=== PATIENT | male | born 1950 | race Caucasian/White ===

== ENCOUNTER 2024-03-12 06:57 | Day surgery (SDC) | payer MEDICARE ==
[2024-03-11 09:51] LABS: BASOPHILS % (AUTO) 0.6 % (0-1); EOSINOPHILS # (AUTO) 0.2 X10'3 (0-0.9); EOSINOPHILS % (AUTO) 3.5 % (0-6); HEMATOCRIT 43.4 % (42.0-52.0); HEMOGLOBIN 14.6 g/dl (14.0-17.9); LYMPHOCYTES # (AUTO) 0.9 X10'3 (1.1-4.8); LYMPHOCYTES % (AUTO) 17.7 % (21-51); MEAN CORPUSCULAR HEMOGLOBIN 31.7 PG (27.0-31.0); MEAN CORPUSCULAR HGB CONC 33.5 g/dL (33.0-36.5); MEAN CORPUSCULAR VOLUME 94.5 FL (78-98); MEAN PLATELET VOLUME 7.2 FL (7.4-10.4); MONOCYTES # (AUTO) 0.5 X10'3 (0-0.9); MONOCYTES % (AUTO) 10.5 % (2-12); NEUTROPHILS # (AUTO) 3.3 X10'3 (1.8-7.7); NEUTROPHILS % (AUTO) 67.7 % (42-75); PLATELET COUNT 223 X10'3 (140-440); RED BLOOD COUNT 4.59 X10'6 (4.70-6.10); RED CELL DISTRIBUTION WIDTH 13.8 % (11.5-14.5); WHITE BLOOD COUNT 4.8 X10'3 (4.5-11.0)
[2024-03-11 10:02] LABS: INR 1.1 INR; PROTHROMBIN TIME 11.4 SECONDS (9.0-12.0)
[2024-03-11 10:22] LABS: ALBUMIN 4.2 G/DL (3.4-5.0); ANION GAP 6 (8-16); BLOOD UREA NITROGEN 11 MG/DL (7-18); BUN/CREATININE RATIO 13.8 (10.0-20.0); CHLORIDE 97 MMOL/L (99-107); GLUCOSE 99 MG/DL (70-104); POTASSIUM 4.8 MMOL/L (3.5-5.1); SODIUM 132 MMOL/L (135-145); TOTAL CARBON DIOXIDE 29.3 MMOL/L (24-32); eGFR > 90 ML/MIN
[~2024-03-12] VITALS: Ht 175.3 cm; Wt 89.9 kg
[2024-03-12] VITALS (16 sets, daily range): BP systolic 97–184; BP diastolic 60–97; PULSE 38–70; RESP 12–17; TEMP 97.4; O2SAT 95–100
[2024-03-12] MEDS: normal saline 1000ml 1,000 ML IV SCH (07:30)
[2024-03-12] MEDS ORDERED: amiodarone 150mg/dext, iso-os 100 ML IV ONE (07:30)
[2024-03-12] MEDS ORDERED: LORazepam 0.5 MG tablet PO ONE (07:30)
[2024-03-12] MEDS ORDERED: diphenhydrAMINE 25mg capsule PO ONE (07:30)
[2024-03-12] MEDS ORDERED: LISI20TA28 PO (07:57)
[2024-03-12] MEDS ORDERED: TERB250T89 PO (07:57)
[2024-03-12] MEDS ORDERED: APIX5TAB3 PO (07:57)
[2024-03-12] MEDS ORDERED: METO50TA16 PO (07:57)
[2024-03-12] MEDS ORDERED: AMLO10TA13 PO (07:57)
[2024-03-12] MEDS ORDERED: FLEC100T PO (07:57)
[2024-03-12] MEDS ORDERED: TERA5CAP4 PO (07:57)
[2024-03-12] MEDS ORDERED: CHOL20004 PO (07:57)
[2024-03-12] MEDS ORDERED: ROSU5TAB43 PO (07:57)
[2024-03-12] MEDS ORDERED: OMEG-166 PO (07:57)
[2024-03-12] MEDS: MIDAZolam 1mg/ml 10ml vial IV ONE (09:56)
[2024-03-12] MEDS: atropine 0.1mg/ml 10ml syringe IV ONE (09:56)
[2024-03-12] MEDS: morphine 10mg/ml inj. IV ONE (09:57)
== END 2024-03-12 10:50 | disposition home or self-care (01) ==
LOC: SSTAY O 06:57
PROVIDERS: ATTEND Internal Medicine Cardiovascular Disease
DX: I48.0 Paroxysmal atrial fibrillation (principal); I10 Essential (primary) hypertension; I25.2 Old myocardial infarction; I44.5 Left posterior fascicular block; E78.5 Hyperlipidemia, unspecified; Z98.890 Other specified postprocedural states; Z79.899 Other long term (current) drug therapy
CPT/HCPCS: 36415; 80048; 85025; 85610; 92960; 93005; J0461; J2250; J2270; J7030; Z7610; J2274